=== PATIENT | male | born 1965 | race Caucasian/White ===

== ENCOUNTER 2016-11-21 21:23 | Emergency (ER) | payer OTHER ==
[2016-11-21] MEDS ORDERED: PEROXIDE 3% ONE (21:36)
--- NOTE | 2016-11-21 21:45 | ERPHSYRPT ---
- History of Present Illness Time Seen by Provider: 11/21/16 21:41 Source: patient Exam Limitations: no limitations Physician History: ABOUT 1 HOUR AGO AT HOME PT WAS WORKING ON [employer]IL [employer] WHEN A MOTH FLEW INTO HIS LEFT EAR WITH RESULTANT LEFT EAR DISCOMFORT. PT DENIES SORE THROAT, FEVER, CHEST PAIN, COUGH. Allergies/Adverse Reactions: No Known Drug Allergies Allergy (Unverified 07/09/13 23:03) Home Medications: Cetirizine HCl [Zyrtec] 10 mg PO DAILY 08/11/12 [History] Lisinopril 20 mg [Zestril 20 MG] 20 mg PO DAILY 08/11/12 [History] [place] 5/325 mg 1 tab PO DAILY PRN PRN 08/11/12 [History] Omeprazole [Prilosec] 20 mg PO DAILY 08/11/12 [History] Simvastatin 20Mg [Zocor 20Mg] 20 mg PO DAILY 08/11/12 [History] Venlafaxine HCl ER 75 mg [Effexor XR 75 MG] 75 mg PO DAILY 08/11/12 [ History] Hx Tetanus, Diphtheria Vaccination/Date Given: Yes Hx Influenza Vaccination/Date Given: No Hx Pneumococcal Vaccination/Date Given: No - Review of Systems Constitutional: No Fever Ears, Nose, & Throat: Other (LEFT EAR FOREIGN BODY(MOTH) TONIGHT.), No Throat Pain Respiratory: No Cough Cardiac: No Chest Pain All Other Systems: Reviewed and Negative - Past Medical History Pertinent Past Medical History: Yes Cardiac History: High Cholesterol, Hypertension - Past Surgical History Past Surgical History: Yes Gastrointestinal: Hernia Repair - Social History Smoking Status: Current every day smoker How long have you smoked: 35 Exposure to second hand smoke: Yes Drug Use: none Patient Lives Alone: No - Nursing Vital Signs Nursing Vital Signs: Initial Vital Signs Temperature 98.1 F 11/21/16 21:34 Pulse Rate 72 11/21/16 21:34 Respiratory Rate 18 11/21/16 21:34 Blood Pressure 152/96 11/21/16 21:34 O2 Sat by Pulse Oximetry 94 L 11/21/16 21:34 Pain Scale Pain Intensity 4 - Physical Exam General Appearance: alert Eye Exam: bilateral eye: PERRL, EOMI Ear Exam: right ear: TM normal, left ear: foreign body Nasal Exam: normal inspection Throat Exam: pharynx normal, moist mucus membranes Neck Exam: normal inspection Cardiovascular/Respiratory Exam: normal breath sounds, heart sounds normal Neurologic Exam: alert, cooperative Skin Exam: warm, dry SpO2 Interpretation: normal SpO2: 94 Oxygen Delivery: Room Air - Course Nursing assessment & vital signs reviewed: Yes Ordered Tests: Active Orders 24 hr Category Date Time Status Ear Irrigation STAT Care 11/21/16 21:41 Active Medication Summary Discontinued Medications Generic Name Dose Route Start Last Admin Trade Name [place] PRN Reason Stop Dose Admin Hydrogen Peroxide Confirm 11/21/16 21:36 Peroxide 3% Administered 11/21/16 21:37 Dose 237 ml .ROUTE .[employer] ONE - Progress Progress Note: 11/21/16 22:25 I REMOVED A LIVE MOTH FROM PT'S LEFT EAR WITH FORCEPS WITHOUT DIFFICULTY. LEFT TM INTACT POST REMOVAL. - Departure Time of Disposition: 22:28 Departure Disposition: Home Clinical Impression: REMOVAL OF MOTH FROM LEFT EAR. Condition: Stable Critical Care Time: No Referrals: TREVOR COOK MD [Primary Care Provider] - Instructions: Removal of Foreign Body From Ear Additional Instructions: FOLLOW UP WITH PRIVATE DOCTOR TOMORROW.
[2016-11-21 22:38] VITALS: BP 145/87; PULSE 68; O2SAT 97
== END 2016-11-21 22:38 | disposition home or self-care (01) ==
LOC: ED 21:23
DX: T16.2XXA Foreign body in left ear, initial encounter (principal)
CPT/HCPCS: 69210; 99281; A9270-GY